=== PATIENT | female | born 1975 | race Caucasian/White ===

== ENCOUNTER 2020-04-30 10:24 | Outpatient (REF) | payer MEDICARE, MEDICAID, SELFPAY ==
--- NOTE | 2020-04-30 10:28 | MM_ITS ---
EXAMINATION: MM SCREENING DIGITAL BREAST TOMOSYNTHESIS, BILATERAL CLINICAL INFORMATION: Screening. Asymptomatic. The lifetime risk of breast cancer based on the Tyrer-Cuzick Model is 11%. COMPARISON: Mammography: 04/18/2019, 03/05/2018, 01/17/2017 TECHNIQUE: Digital breast tomosynthesis is performed in both the craniocaudal and mediolateral oblique views along with computer-aided detection (CAD). Synthesized 2D images are generated from the tomosynthesis. FINDINGS: There are scattered areas of fibroglandular density (ACR BI-RADS breast composition Category b). There are no significant masses, abnormal calcifications, or other abnormalities. There are 2 small stable circumscribed nodules again seen central posterior 6:00 right breast. No significant changes from prior exams. MM/MM tomosynthesis screening BI IMPRESSION: No significant changes from prior studies. ASSESSMENT: BI-RADS 2: Benign RECOMMENDATION: Routine annual mammography screening. This patient's information was entered into a reminder system with a target due date for their next mammogram.
== END 2020-04-30 10:25 | disposition home or self-care (01) ==
LOC: HO.MAMMO 10:24
PROVIDERS: PCP Internal Medicine; Visit Provider Internal Medicine
DX: Z12.31 Encounter for screening mammogram for malignant neoplasm of breast (principal)
CPT/HCPCS: 77063; 77067

== ENCOUNTER 2020-06-20 15:18 | Outpatient (REF) | payer MEDICARE, MEDICAID, SELFPAY ==
[2020-06-20 16:37] LABS: Alanine Aminotransferase 10 U/L (0-31); Albumin Level 4.1 g/dL (3.5-5.0); Alkaline Phosphatase 71 U/L (39-117); Anion Gap 12 (12-20); Aspartate Amino Transferase 13 U/L (5-31); Bilirubin Direct < 0.2 mg/dL (0.0-0.5); Bilirubin Total 0.3 mg/dL (0.0-1.0); Blood Urea Nitrogen 9 mg/dL (9-16); Calcium 8.8 mg/dL (8.4-10.2); Carbon Dioxide 29 mmol/L (22-29); Chloride 101 mmol/L (96-108); Estimated Glomerular Filt Rate > 60; Glucose Random 96 mg/dL (60-115); Potassium 4.8 mmol/L (3.3-5.1); Sodium 137 mmol/L (135-145); Total Protein 6.8 g/dL (6.5-8.0)
[2020-06-20 16:59] LABS: TSH reflex Free T4 1.32 uIU/mL (0.32-4.0)
== END 2020-06-20 15:19 | disposition home or self-care (01) ==
LOC: HO.HMGCLDS 15:18
PROVIDERS: PCP Internal Medicine; Visit Provider Internal Medicine
DX: E03.9 Hypothyroidism, unspecified (principal)
CPT/HCPCS: 36415; 80048; 80076; 84443

== ENCOUNTER 2021-01-06 12:10 | Outpatient (REF) | payer MEDICARE, MEDICAID, SELFPAY | END 2021-01-06 12:11 | disposition home or self-care (01) | LOC: HO.HMGCLDS 12:10 | PROVIDERS: PCP Internal Medicine; Visit Provider Internal Medicine | DX: E03.9 Hypothyroidism, unspecified (principal) | CPT/HCPCS: 36415; 84443 ==

== ENCOUNTER 2021-05-15 11:40 | Outpatient (REF) | payer MEDICARE, MEDICAID, SELFPAY ==
--- NOTE | ~2021-05-15 | MM_ITS ---
EXAMINATION: MM SCREENING DIGITAL BREAST TOMOSYNTHESIS, BILATERAL CLINICAL INFORMATION: Screening. Asymptomatic. The lifetime risk of breast cancer based on the Tyrer-Cuzick Model is 10%. COMPARISON: Mammography: 04/30/2020, 04/18/2019, 03/05/2018 TECHNIQUE: Digital breast tomosynthesis is performed in both the craniocaudal and mediolateral oblique views along with computer-aided detection (CAD). Synthesized 2D images are generated from the tomosynthesis. FINDINGS: There are scattered areas of fibroglandular density (ACR BI-RADS breast composition Category b). There are no significant masses, abnormal calcifications, or other abnormalities. Small circumscribed nodule likely intramammary node mid upper outer left breast stable. There are 2 small stable circumscribed nodules again noted central posterior 6:00 right breast. MM/MM tomosynthesis screening BI IMPRESSION: No mammographic evidence of malignancy. ASSESSMENT: BI-RADS 2: Benign RECOMMENDATION: Routine annual mammography screening. This patient's information was entered into a reminder system with a target due date for their next mammogram.
== END 2021-05-15 11:41 | disposition home or self-care (01) ==
LOC: HO.MAMMO 11:40
PROVIDERS: Visit Provider Internal Medicine
DX: Z12.31 Encounter for screening mammogram for malignant neoplasm of breast (principal)
CPT/HCPCS: 77063; 77067

== ENCOUNTER 2021-06-28 08:05 | Outpatient (REF) | payer MEDICARE, MEDICAID, SELFPAY ==
[2021-06-28 09:55] LABS: Hematocrit 38.8 % (37.0-47.0); Hemoglobin 12.7 g/dl (12.0-16.0); Mean Corpuscular HGB Conc 32.7 g/dl (31.0-35.0); Mean Corpuscular Volume 88.6 fL (80.0-98.0); Mean Platelet Volume 9.4 fL (9.4-12.3); Platelet Count 330 X10*3/uL (160-400); Red Blood Count 4.38 X10*6/uL (4.20-5.50); Red Cell Distribution Width 11.9 % (11.0-16.0); White Blood Count 7.8 X10*3/uL (4.8-10.8)
[2021-06-28 10:42] LABS: HCG Quantitative < 2 mIU/mL; TSH reflex Free T4 1.61 uIU/mL (0.32-4.0)
[2021-06-28 17:25] LABS: CT PCR NOT DETECTED (Not Detect.); NG PCR NOT DETECTED (Not Detect.)
[2021-06-30 19:42] LABS: HPV mRNA E6/E7 rflx Not Detected (Not Detected)
== END 2021-06-28 08:06 | disposition home or self-care (01) ==
LOC: HO.LAB 08:05
PROVIDERS: PCP Internal Medicine; Visit Provider Obstetrics & Gynecology
DX: Z01.411 Encounter for gynecological examination (general) (routine) with abnormal findings (principal); Z11.51 Encounter for screening for human papillomavirus (HPV); N93.9 Abnormal uterine and vaginal bleeding, unspecified
CPT/HCPCS: 36415; 84443; 84702; 85027; 87491; 87591; 87624; 88142; 99212

== ENCOUNTER → 2021-07-17 08:33 | Outpatient (BNVA) | payer MEDICARE, MEDICAID, SELFPAY | PROVIDERS: PCP Internal Medicine; Visit Provider Obstetrics & Gynecology | DX: N93.9 Abnormal uterine and vaginal bleeding, unspecified (principal) | CPT/HCPCS: 99212 ==

== ENCOUNTER 2021-07-25 10:48 | Outpatient (REF) | payer MEDICARE, MEDICAID, SELFPAY ==
--- NOTE | ~2021-07-25 | US_ITS ---
EXAMINATION: US PELVIS CLINICAL INFORMATION: Abnormal uterine and vaginal bleeding COMPARISON: None TECHNIQUE: Ultrasound of the pelvis is performed using both transabdominal and transvaginal transducers along with Doppler. Transvaginal imaging is performed due to inadequate visualization transabdominally. FINDINGS: Uterus: The uterus is anteverted, anteflexed and measures 7.7 x 2.9 x 4.3 cm. 0.3 The double wall endometrial thickness is 0.3 cm. The uterus is smooth in contour and has normal myometrial echogenicity. Is a hypoechoic lesion in the posterior upper body of uterus measuring 0.6 x 0.5 x 0.7 cm suggestive of small fibroid. No additional lesions seen.. Adnexa: Both ovaries are visualized. There is normal color flow to the adnexa. There is no ovarian torsion. There is no pelvic ascites or fluid collection. Right ovary measures 1.7 x 1.3 x 0.9 cm and volume 1.0 mL. Left ovary measures 2.6 x 2.2 x 1.8 cm and volume 5.4 mL. There are small follicles and punctate calcifications in left ovary. There is no free fluid in cul-de-sac. US/US pelvic and transvaginal IMPRESSION: Small uterine fibroid. Small follicles and punctate calcifications in the left ovary. Unremarkable right ovary.
== END 2021-07-25 10:49 | disposition home or self-care (01) ==
LOC: HO.US 10:48
PROVIDERS: PCP Internal Medicine; Visit Provider Obstetrics & Gynecology
DX: N93.9 Abnormal uterine and vaginal bleeding, unspecified (principal)
CPT/HCPCS: 76830; 76856

== ENCOUNTER 2021-08-07 11:22 | Outpatient (REF) | payer MEDICARE, MEDICAID, SELFPAY ==
[2021-08-10 02:51] LABS: HPV mRNA E6/E7 rflx Not Detected (Not Detected)
== END 2021-08-07 11:23 | disposition home or self-care (01) ==
LOC: HO.LAB 11:22
PROVIDERS: PCP Internal Medicine; Visit Provider Obstetrics & Gynecology
DX: Z01.419 Encounter for gynecological examination (general) (routine) without abnormal findings (principal); R87.615 Unsatisfactory cytologic smear of cervix; N93.9 Abnormal uterine and vaginal bleeding, unspecified
CPT/HCPCS: 87624; 88142; 99212

== ENCOUNTER 2021-08-11 06:48 | Day surgery (SDC) | payer MEDICARE, MEDICAID, SELFPAY ==
[2021-08-04 14:40] VITALS: BMI 26.2
--- NOTE | 2021-08-09 13:25 | HO.ANESPROP2 ---
Documented by User: Felisha Heaton NP 08/09/21 13:26 HPI - Anesthesia Eval Consult details Narrative: 46yo F for D&C Hysteroscopy,poss polypectomy,poss myomectomy PMFSH Active Problems Active Problems: All Active Problems (Updated 08/07/21 @ 12:27 by Gorge Carmona MD) Unsatisfactory cervical Papanicolaou smear (Acute) Vomiting (Acute) Hospital discharge follow-up (Acute) Hypothyroidism (Acute) Medicare annual wellness visit, initial (Acute) Well woman exam (Acute) Abnormal uterine bleeding (AUB) (Acute) Recurrent falls (Acute) Cerebral palsy (Acute) Spastic gait (Acute) Past Medical History Medical History (Updated 08/09/21 @ 13:26 by Felisha Heaton NP) Cerebral palsy Hypothyroidism Insomnia TBI (traumatic brain injury) Family History Family History Father HTN (hypertension) Mother Diabetes mellitus History of CVA (cerebrovascular accident) Myocardial infarction Brother Leukemia Sister No problems noted. Surgical History Surgical History History of brain surgery History of surgery History of surgery on arm Social History Social History Are you a primary behavioral health care manager to a significant other at home: No Do you presently have visiting nurse or other home services: Yes (2 Caregivers) Patient Tobacco Use Status: Never used Tobacco Second Hand Smoke Exposure: No Use of substances other than those prescribed or required for medical reasons: No Have you been hit, kicked, punched, or otherwise hurt by someone within the past year? If so, by whom?: No Advance Directives: No Advance Directives Information Provided: Yes Advance Directives on File: No Recently lost weight without trying: No Eating poorly because of decreased appetite: No Patient : No Meds Allergies Allergy/AdvReac Type Severity Reaction Status Date / Time codeine Allergy Unknown unknown Verified 06/28/21 08:20 sertraline [Zoloft] AdvReac Unknown unknown Verified 01/06/21 11:36 Home Medications Medication Instructions Recorded Confirmed Last Taken Type docusate sodium 100 mg capsule 100 mg PO BID 06/13/20 08/04/21 Unknown History (Colace) lactulose 20 gram/30 mL oral 10 g PO BID ml 06/13/20 08/04/21 Unknown History solution melatonin 3 mg tablet,extended 6 mg PO .EVERY EVENING PRN tab 06/13/20 08/04/21 Unknown History release terbinafine HCl 1 % topical cream 1 appl TOPICAL BID 06/13/20 08/04/21 Unknown History (Lamisil AT) clonazepam 0.5 mg tablet 0.5 mg PO .in the morning tab 01/06/21 08/04/21 Unknown History clonazepam 1 mg tablet 1 mg PO BEDTIME 01/06/21 08/04/21 Unknown History gabapentin 100 mg capsule 100 mg PO TID cap 01/06/21 08/04/21 Unknown History lamotrigine 100 mg tablet 100 mg PO BID 01/06/21 08/04/21 Unknown History (Lamictal) lamotrigine 25 mg tablet (Lamictal) 25 mg PO BID tab 01/06/21 08/04/21 Unknown History quetiapine 25 mg tablet (Seroquel) 25 mg PO .in the morning tab 01/06/21 08/04/21 Unknown History quetiapine 300 mg tablet (Seroquel) 300 mg PO BEDTIME 01/06/21 08/04/21 Unknown History trazodone 100 mg tablet 200 mg PO BEDTIME 01/06/21 08/04/21 Unknown History Exam Exam Date and Time: August 09, 2021 1325 Height,Weight and Vital Signs: Height 5 ft 3 in Weight 67.132 kg Assessment and Plan Assessment Anesthesia Assessment: Chart Reviewed Documented by User: Lorna Delaney MD 08/11/21 07:44 [facility] Past Medical History Medical History (Updated 08/09/21 @ 13:26 by Felsiha Heaton NP) Cerebral palsy Hypothyroidism Insomnia TBI (traumatic brain injury) Family History Family History Father HTN (hypertension) Mother Diabetes mellitus History of CVA (cerebrovascular accident) Myocardial infarction Brother Leukemia Sister No problems noted. Family history of problems with anesthesia: No Surgical History Surgical History History of brain surgery History of surgery History of surgery on arm History of Problems with Anesthesia: No Social History Social History Are you a primary behavioral health care manager to a significant other at home: No Do you presently have visiting nurse or other home services: Yes (2 Caregivers) Patient Tobacco Use Status: Never used Tobacco Second Hand Smoke Exposure: No Use of substances other than those prescribed or required for medical reasons: No Have you been hit, kicked, punched, or otherwise hurt by someone within the past year? If so, by whom?: No Advance Directives: No Advance Directives Information Provided: Yes Advance Directives on File: No Recently lost weight without trying: No Eating poorly because of decreased appetite: No Patient : No Meds Allergies Allergy/AdvReac Type Severity Reaction Status Date / Time codeine Allergy Unknown unknown Verified 06/28/21 08:20 sertraline [Zoloft] AdvReac Unknown unknown Verified 01/06/21 11:36 Home Medications Medication Instructions Recorded Confirmed Last Taken Type docusate sodium 100 mg capsule 100 mg PO BID 06/13/20 08/04/21 Unknown History (Colace) lactulose 20 gram/30 mL oral 10 g PO BID ml 06/13/20 08/04/21 Unknown History solution melatonin 3 mg tablet,extended 6 mg PO .EVERY EVENING PRN tab 06/13/20 08/04/21 Unknown History release terbinafine HCl 1 % topical cream 1 appl TOPICAL BID 06/13/20 08/04/21 Unknown History (Lamisil AT) clonazepam 0.5 mg tablet 0.5 mg PO .in the morning tab 01/06/21 08/04/21 Unknown History clonazepam 1 mg tablet 1 mg PO BEDTIME 01/06/21 08/04/21 Unknown History gabapentin 100 mg capsule 100 mg PO TID cap 01/06/21 08/04/21 Unknown History lamotrigine 100 mg tablet 100 mg PO BID 01/06/21 08/04/21 Unknown History (Lamictal) lamotrigine 25 mg tablet (Lamictal) 25 mg PO BID tab 01/06/21 08/04/21 Unknown History quetiapine 25 mg tablet (Seroquel) 25 mg PO .in the morning tab 01/06/21 08/04/21 Unknown History quetiapine 300 mg tablet (Seroquel) 300 mg PO BEDTIME 01/06/21 08/04/21 Unknown History trazodone 100 mg tablet 200 mg PO BEDTIME 01/06/21 08/04/21 Unknown History Exam Airway Mallampati Class: II TM Dist: >3cm Neck ROM: Full Assessment and Plan Assessment Anesthesia Assessment: Anesthesia Plan Discussed Final Anesthetic Review Family History of Problems with Anesthesia: No History of Problems with Anesthesia: No NPO: Yes ASA Class: II Final Preanesthetic Review: No Changes in Pt Med Stat, Meds/Allgs Chart Reviewed, Consent Obtained/Reviewed and Anes Risks/Benef Reviewed Patient Risk: Low Procedure Risk: Low Anesthetic Plan Anesthetic Plan: GA Disposition: Standard PACU
[2021-08-11] VITALS (9 sets, daily range): BP systolic 112–157; BP diastolic 57–92; PULSE 64–87; RESP 14–17; TEMP 36.4–37.3; O2SAT 98–100; BMI 37.3
[2021-08-11 07:28] LABS: UPreg QC Valid YES; Urine Pregnancy NEGATIVE (NEGATIVE)
--- NOTE | 2021-08-11 07:34 | MHC.SHP ---
Pre-Procedural Eval Section A Date of Service: 08/11/21 The patient is an INPATIENT: No Changes since office visit: No Cold of Flu in the past 2 weeks, No New Medical Problems, No Changes in Medication and No Patient answered all questions The History & Physical has been completed within 30 days and I have reviewed it.: Yes Section B Chief Complaint: Abnormal uterine and vaginal bleeding Allergies: Allergies Allergy/AdvReac Type Severity Reaction Status Date / Time codeine Allergy Unknown unknown Verified 06/28/21 08:20 sertraline [Zoloft] AdvReac Unknown unknown Verified 01/06/21 11:36 Plan Diagnosis/Plan: Unchanged I have reviewed the history and physical and performed a pertinent physical examination on my patient. No changes have occurred unless specified.
[2021-08-11] MEDS: Lactated Ringers 1,000 ML 100 ML IVCONT (07:36)
--- NOTE | 2021-08-11 08:45 | P.BOP_ITS ---
Brief Operative Note Date of Service: 08/11/21 Pre-op diagnosis: Abnormal uterine bleeding Post-op diagnosis: same (With endometrial polyp) Procedure: Hysteroscopy D&C, Polypectomy Surgeon: Gorge Carmona MD Anesthesia: MAC Was an [employer] used for this Procedure?: No Estimated blood loss (mL): 0 Pathology: other (Endometrial Scrapping. Polyp) Condition: stable Disposition: PACU
--- NOTE | 2021-08-11 08:46 | W.PM.OPN ---
Operative Note Operative Note Date of Service: 08/11/21 Narrative: Preop Diagnosis: Abnormal uterine bleeding Operation: Diagnostic Hysteroscopy, Dilataion & Curettage and polypectomy Post Op Diagnosis: Endometrial Polyp QBL: Minimal Anesthesia: MAC Surgeon: Gorge Carmona MD Hot Metal Charger: None Complication: None Pathology: Endometrial Scrapings, Endometrial polyp Complication: None Pathology: Endometrial Scrapings, Endometrial polyp Procedure: The patient was put in the dorsal lithotomy position, scrubbed, and draped in the usual manner. A sterile speculum was inserted in the patient's vagina. The anterior lip of the cervix was grasped with a single tooth tenaculum. The cervix was dilated up to 5 mm, then the scope was inserted in the patient's uterus. Inspection revealed endometrial polyp. The Myosure Reach device was used; it was introduced through the operative channel and polypectomy done with no complications. This was followed by sharp curettings with moderate amount of tissues retrieved. At the end of the procedure, all instruments were taken out of the patient uterine and vaginal cavity. The single tooth tenaculum was removed and homeostasis was assured using pressure,. The patient tolerated the procedure well and was transferred to the PACU in a stable condition.
[2021-08-11] MEDS: Acetaminophen 325 MG TABLET 650 MG PO (09:42)
== END 2021-08-11 10:35 | disposition home or self-care (01) ==
PROVIDERS: PCP Internal Medicine; Visit Provider Obstetrics & Gynecology
PROC: 0UDB8ZZ Extraction of Endometrium, Via Natural or Artificial Opening Endoscopic (ICD-10-PCS; CPT 58558; principal; 2021-08-11 08:30)
DX: N93.9 Abnormal uterine and vaginal bleeding, unspecified (principal); N84.0 Polyp of corpus uteri
CPT/HCPCS: 58558; 81025; 88305; J1100; J2250; J2405; J3010

== ENCOUNTER → 2021-08-14 10:35 | Outpatient (BNVA) | payer MEDICARE, MEDICAID, SELFPAY | PROVIDERS: PCP Internal Medicine; Referring Provider Internal Medicine; Visit Provider Physician Assistant | DX: Z12.11 Encounter for screening for malignant neoplasm of colon (principal) | CPT/HCPCS: 99202 ==

== ENCOUNTER → 2021-08-24 15:25 | Outpatient (BNVA) | payer MEDICARE, MEDICAID, SELFPAY | PROVIDERS: PCP Internal Medicine; Visit Provider Obstetrics & Gynecology | DX: N93.9 Abnormal uterine and vaginal bleeding, unspecified (principal) | CPT/HCPCS: 51705; Q3014 ==

== ENCOUNTER 2022-02-07 09:04 | Outpatient (REF) | payer MEDICARE, MEDICAID, SELFPAY ==
--- NOTE | ~2022-02-07 | XR_ITS ---
EXAMINATION: XR HIP, LEFT CLINICAL INFORMATION: Left hip pain. COMPARISON: None TECHNIQUE: Two views of the left hip. FINDINGS: Minimal degenerative changes are seen in the superior aspect of the left hip joint. There is no acute fracture or dislocation. The left hemipelvis is intact. Incidental mild heterotopic bone formation adjacent to the left iliac bone. XR/XR hip LT min 2V IMPRESSION: 1. Minimal left hip degenerative joint changes. No acute abnormality. 2. Incidental mild heterotopic bone formation/enthesopathy laterally adjacent to the iliac bone could be degenerative in nature and/or chronic posttraumatic.
== END 2022-02-07 09:05 | disposition home or self-care (01) ==
LOC: HO.HMGCX 09:04
PROVIDERS: PCP Internal Medicine; Visit Provider Emergency Medicine
DX: M25.552 Pain in left hip (principal)
CPT/HCPCS: 73502